=== PATIENT | female | born 1960 | race Caucasian/White ===

== ENCOUNTER → 2016-10-08 | Outpatient (CLI) | payer OTHER | LOC: LAB 07:56 | DX: I10 Essential (primary) hypertension (principal); E13.9 Other specified diabetes mellitus without complications; E03.8 Other specified hypothyroidism ==

== ENCOUNTER → 2017-02-25 | Outpatient (CLI) | payer OTHER | LOC: LAB 07:38 | DX: E03.8 Other specified hypothyroidism (principal); I10 Essential (primary) hypertension; R73.09 Other abnormal glucose ==

== ENCOUNTER → 2017-06-12 | Outpatient (CLI) | payer OTHER ==
[2017-06-12 09:14] LABS: HEMATOCRIT 44.4 % (37.0-47.0); HEMOGLOBIN 14.7 g/dL (12.5-16.0); MEAN PLATELET VOLUME 9.1 fl (7.4-10.4); RED BLOOD COUNT 5.04 M/mm3 (4.10-5.30); RED CELL DISTRIBUTION WIDTH 12.8 % (11.5-14.5); WHITE BLOOD COUNT 12.6 K/mm3 (4.8-10.8)
[2017-06-12 09:40] LABS: ALBUMIN 4.2 g/dL (3.5-5.0); BUN/CREATININE RATIO 33.3 (6.0-26.0); TOTAL BILIRUBIN 0.7 mg/dL (0.2-1.3); TOTAL PROTEIN 7.7 g/dL (6.3-8.2)
== END ==
LOC: LAB 09:00
PROVIDERS: Family Medicine
DX: E03.9 Hypothyroidism, unspecified (principal); E11.9 Type 2 diabetes mellitus without complications; R55 Syncope and collapse

== ENCOUNTER → 2017-06-12 | Outpatient (CLI) | payer OTHER | LOC: RAD 13:00 | DX: G93.9 Disorder of brain, unspecified (principal); R55 Syncope and collapse ==

== ENCOUNTER → 2017-09-09 | Outpatient (CLI) | payer OTHER | LOC: LAB 08:46 | PROVIDERS: Family Medicine | DX: E13.9 Other specified diabetes mellitus without complications (principal); E03.8 Other specified hypothyroidism ==

== ENCOUNTER → 2017-10-04 | Outpatient (CLI) | payer OTHER ==
[2017-10-04 07:29] LABS: PH-URINE 5.5 (5.0 - 8.0); URINE APPEARANCE HAZY; URINE COLOR YELLOW
[2017-10-04 07:30] LABS: URINE BILIRUBIN NEGATIVE (NEGATIVE); URINE BLOOD 250 ery/uL (NEGATIVE); URINE GLUCOSE NEGATIVE (NEGATIVE); URINE KETONE NEGATIVE (NEGATIVE); URINE LEUKOCYTE ESTERASE 2+ (NEGATIVE); URINE NITRATE NEGATIVE (NEGATIVE); URINE PROTEIN(semi-quant) 1+ mg/dL (NEGATIVE); URINE UROBILINOGEN NORMAL (NORMAL); URINE WBC 31-50 /hpf (0-3)
== END ==
LOC: LAB 07:24
PROVIDERS: Family Medicine
DX: R30.9 Painful micturition, unspecified (principal); Z88.5 Allergy status to narcotic agent

== ENCOUNTER → 2017-10-16 | Outpatient (CLI) | payer OTHER ==
[2017-10-16 11:38] LABS: PH-URINE 6.5 (5.0 - 8.0); URINE APPEARANCE CLEAR; URINE BILIRUBIN NEGATIVE (NEGATIVE); URINE BLOOD NEGATIVE (NEGATIVE); URINE COLOR YELLOW; URINE GLUCOSE NEGATIVE (NEGATIVE); URINE KETONE NEGATIVE (NEGATIVE); URINE LEUKOCYTE ESTERASE NEGATIVE (NEGATIVE); URINE NITRATE NEGATIVE (NEGATIVE); URINE PROTEIN(semi-quant) TRACE mg/dL (NEGATIVE); URINE UROBILINOGEN NORMAL (NORMAL)
== END ==
LOC: LAB 10:04
PROVIDERS: Family Medicine
DX: R30.9 Painful micturition, unspecified (principal)

== ENCOUNTER → 2017-11-09 | Outpatient (CLI) | payer OTHER | LOC: LAB 16:42 | PROVIDERS: Family Medicine | DX: E13.9 Other specified diabetes mellitus without complications (principal); E03.8 Other specified hypothyroidism ==

== ENCOUNTER → 2018-03-07 | Outpatient (CLI) | payer OTHER ==
[2018-03-08 13:38] LABS: BUN/CREATININE RATIO 27.8 (6.0-26.0); CALCIUM 9.8 mg/dL (8.4-10.2); POTASSIUM 4.7 mmol/L (3.6-5.0)
== END ==
LOC: LAB 07:11
PROVIDERS: Family Medicine
DX: E11.9 Type 2 diabetes mellitus without complications (principal); E03.9 Hypothyroidism, unspecified

== ENCOUNTER → 2018-03-19 | Outpatient (CLI) | payer OTHER | LOC: RAD 13:00 | DX: E04.1 Nontoxic single thyroid nodule (principal); E03.9 Hypothyroidism, unspecified; I10 Essential (primary) hypertension; D32.9 Benign neoplasm of meninges, unspecified ==

== ENCOUNTER → 2018-08-31 | Outpatient (CLI) | payer OTHER ==
[2018-08-31 09:02] LABS: ALBUMIN 4.2 g/dL (3.5-5.0); CALCIUM 9.1 mg/dL (8.4-10.2); POTASSIUM 4.1 mmol/L (3.6-5.0); TOTAL BILIRUBIN 0.4 mg/dL (0.2-1.3); TOTAL PROTEIN 6.8 g/dL (6.3-8.2)
== END ==
LOC: LAB 08:27
PROVIDERS: Family Medicine
DX: I10 Essential (primary) hypertension (principal); E11.9 Type 2 diabetes mellitus without complications

== ENCOUNTER → 2018-09-14 | Outpatient (CLI) | payer OTHER ==
[~2018-09-14] VITALS: Ht 198.1 cm; Wt 81.8 kg
[~2018-09-14] MED LIST: CHILDREN'S ASPI81 M1 PO; HYDROCHLOROTHIA1 T15 PO; LEVOTHYROXINE125 MCG PO
[2018-09-14 16:00] VITALS: BP 144/82
[2018-09-14 23:52] LABS: ESTRADIOL 29 pg/mL (()); FOLLICLE STIMULATING HORMONE 52.5 mIU/mL (())
== END ==
LOC: AMSURD 15:25
PROVIDERS: Family Medicine
DX: Z00.00 Encounter for general adult medical examination without abnormal findings (principal); R53.1 Weakness; E03.9 Hypothyroidism, unspecified; I10 Essential (primary) hypertension; G00-G99 Diseases of the nervous system; Z79.899 Other long term (current) drug therapy

== ENCOUNTER → 2018-10-11 | Outpatient (CLI) | payer OTHER ==
[2018-09-14 16:00] VITALS: BP 144/82
[2018-10-11 07:39] LABS: EOS # 0.1 (0.04-0.40); EOS % 1.9 % (1.0-5.0); HEMATOCRIT 44.3 % (37.0-47.0); HEMOGLOBIN 14.1 g/dL (12.5-16.0); LYMPH# 1.4 (1.50-4.00); MEAN CELL VOLUME 94 fl (78-100); MEAN CORPUSCULAR HEMOGLOBIN 30 pg (27-31); MEAN CORPUSCULAR HGB CONC 32 g/dL (33-37); MONO # 0.7 (0.20-0.80); NEU # 4.5 (1.40-6.50); PLATELET COUNT 288 K/mm3 (130-400); RED BLOOD COUNT 4.73 M/mm3 (4.10-5.30); RED CELL DISTRIBUTION WIDTH 12.8 % (11.5-14.5); WHITE BLOOD COUNT 6.7 K/mm3 (4.8-10.8)
[2018-10-11 08:05] LABS: ALBUMIN 4.4 g/dL (3.5-5.0); CALCIUM 9.2 mg/dL (8.4-10.2); POTASSIUM 4.3 mmol/L (3.6-5.0); TOTAL BILIRUBIN 0.5 mg/dL (0.2-1.3)
== END ==
LOC: LAB 07:05
DX: Z51.81 Encounter for therapeutic drug level monitoring (principal)

== ENCOUNTER → 2019-01-14 | Outpatient (CLI) | payer OTHER ==
[2018-09-14 16:00] VITALS: BP 144/82
[2019-01-14 08:14] LABS: EOS # 0.1 (0.04-0.40); EOS % 2.7 % (1.0-5.0); HEMOGLOBIN 13.7 g/dL (12.5-16.0); LYMPH# 1.4 (1.50-4.00); MEAN CELL VOLUME 93 fl (78-100); MEAN CORPUSCULAR HEMOGLOBIN 30 pg (27-31); MEAN CORPUSCULAR HGB CONC 32 g/dL (33-37); MEAN PLATELET VOLUME 9.4 fl (7.4-10.4); MONO # 0.4 (0.20-0.80); NEU # 2.6 (1.40-6.50); PLATELET COUNT 255 K/mm3 (130-400); RED BLOOD COUNT 4.64 M/mm3 (4.10-5.30); RED CELL DISTRIBUTION WIDTH 13.2 % (11.5-14.5); WHITE BLOOD COUNT 4.5 K/mm3 (4.8-10.8)
[2019-01-14 08:56] LABS: ALBUMIN 3.9 g/dL (3.5-5.0); CALCIUM 9.4 mg/dL (8.3-10.5); POTASSIUM 3.9 mmol/L (3.5-5.1); TOTAL BILIRUBIN 0.3 mg/dL (0.2-1.2); TOTAL PROTEIN 6.2 g/dL (6.4-8.3)
== END ==
LOC: LAB 07:11
DX: Z51.81 Encounter for therapeutic drug level monitoring (principal)

== ENCOUNTER → 2019-09-09 | Outpatient (CLI) | payer OTHER ==
[2018-09-14 16:00] VITALS: BP 144/82
[2019-09-09 10:15] LABS: ALBUMIN 4.7 g/dL (3.5-5.0); POTASSIUM 4.3 mmol/L (3.5-5.1)
[2019-09-09 10:16] LABS: CALCIUM 9.5 mg/dL (8.3-10.5)
[2019-09-09 10:19] LABS: TOTAL BILIRUBIN 0.3 mg/dL (0.2-1.2)
== END ==
LOC: LAB 06:35
PROVIDERS: Family Medicine
DX: Z13.6 Encounter for screening for cardiovascular disorders (principal); E03.9 Hypothyroidism, unspecified; I10 Essential (primary) hypertension; E11.9 Type 2 diabetes mellitus without complications

== ENCOUNTER → 2019-10-04 | Outpatient (CLI) | payer OTHER ==
[2018-09-14 16:00] VITALS: BP 144/82
== END ==
LOC: RAD 11:25
DX: R06.02 Shortness of breath (principal)

== ENCOUNTER → 2019-11-16 | Outpatient (CLI) | payer OTHER ==
[2018-09-14 16:00] VITALS: BP 144/82
[2019-11-16 08:23] LABS: EOS # 0.1 (0.04-0.40); EOS % 1.9 % (1.0-5.0); HEMATOCRIT 46.3 % (37.0-47.0); HEMOGLOBIN 14.7 g/dL (12.5-16.0); LYMPH# 1.2 (1.50-4.00); MEAN CELL VOLUME 95 fl (78-100); MEAN CORPUSCULAR HEMOGLOBIN 30 pg (27-31); MEAN CORPUSCULAR HGB CONC 32 g/dL (33-37); MEAN PLATELET VOLUME 8.7 fl (7.4-10.4); MONO # 0.6 (0.20-0.80); PLATELET COUNT 264 K/mm3 (130-400); RED BLOOD COUNT 4.89 M/mm3 (4.10-5.30); WHITE BLOOD COUNT 5.9 K/mm3 (4.8-10.8)
[2019-11-16 08:46] LABS: CALCIUM 9.2 mg/dL (8.3-10.5); POTASSIUM 4.1 mmol/L (3.5-5.1); TOTAL PROTEIN 6.9 g/dL (6.4-8.3)
[2019-11-16 08:47] LABS: ALBUMIN 4.4 g/dL (3.5-5.0); TOTAL BILIRUBIN 0.4 mg/dL (0.2-1.2)
== END ==
LOC: LAB 08:09
DX: Z01.89 Encounter for other specified special examinations (principal)

== ENCOUNTER → 2020-02-11 | Outpatient (CLI) | payer OTHER ==
[2018-09-14 16:00] VITALS: BP 144/82
== END ==
LOC: LAB 06:58
DX: Z00.00 Encounter for general adult medical examination without abnormal findings (principal); E03.9 Hypothyroidism, unspecified; I10 Essential (primary) hypertension; G00-G99 Diseases of the nervous system

== ENCOUNTER → 2020-06-01 | Outpatient (CLI) | payer OTHER ==
[2018-09-14 16:00] VITALS: BP 144/82
[2020-06-01 09:21] LABS: EOS # 0.1 (0.04-0.40); EOS % 2.3 % (1.0-5.0); HEMATOCRIT 46.1 % (37.0-47.0); HEMOGLOBIN 14.8 g/dL (12.5-16.0); LYMPH# 1.1 (1.50-4.00); MEAN CELL VOLUME 92 fl (78-100); MEAN CORPUSCULAR HEMOGLOBIN 30 pg (27-31); MEAN CORPUSCULAR HGB CONC 32 g/dL (33-37); MEAN PLATELET VOLUME 8.7 fl (7.4-10.4); MONO # 0.5 (0.20-0.80); NEU # 3.4 (1.40-6.50); PLATELET COUNT 281 K/mm3 (130-400); RED BLOOD COUNT 5.01 M/mm3 (4.10-5.30); RED CELL DISTRIBUTION WIDTH 12.6 % (11.5-14.5); WHITE BLOOD COUNT 5.1 K/mm3 (4.8-10.8)
[2020-06-01 09:26] LABS: ALBUMIN 4.7 g/dL (3.5-5.0); POTASSIUM 4.1 mmol/L (3.5-5.1)
[2020-06-01 09:28] LABS: CALCIUM 9.7 mg/dL (8.3-10.5)
[2020-06-01 09:29] LABS: TOTAL PROTEIN 7.8 g/dL (6.4-8.3)
[2020-06-01 09:31] LABS: TOTAL BILIRUBIN 0.6 mg/dL (0.2-1.2)
== END ==
LOC: LAB 09:07
PROVIDERS: Family Medicine
DX: Z51.81 Encounter for therapeutic drug level monitoring (principal)

== ENCOUNTER → 2020-08-08 | Outpatient (CLI) | payer OTHER ==
[2018-09-14 16:00] VITALS: BP 144/82
== END ==
LOC: LAB 10:46
DX: T14.8XXA Other injury of unspecified body region, initial encounter (principal)

== ENCOUNTER → 2020-08-18 | Outpatient (CLI) | payer OTHER ==
[2018-09-14 16:00] VITALS: BP 144/82
== END ==
LOC: LAB 15:29
DX: Z01.812 Encounter for preprocedural laboratory examination (principal); E78.00 Pure hypercholesterolemia, unspecified

== ENCOUNTER → 2021-01-08 | Outpatient (CLI) | payer OTHER ==
[2018-09-14 16:00] VITALS: BP 144/82
[2021-01-08 14:31] LABS: BASO # 0.02 (0.02-0.10); EOS # 0.11 (0.04-0.40); EOS % 1.4 % (1.0-5.0); HEMATOCRIT 44.4 % (37.0-47.0); HEMOGLOBIN 14.6 g/dL (12.5-16.0); LYMPH# 1.65 (1.50-4.00); MEAN CELL VOLUME 91 fl (78-100); MEAN CORPUSCULAR HEMOGLOBIN 30 pg (27-31); MEAN CORPUSCULAR HGB CONC 33 g/dL (33-37); MEAN PLATELET VOLUME 8.5 fl (7.4-10.4); MONO # 0.62 (0.20-0.80); NEU # 5.54 (1.40-6.50); PLATELET COUNT 271 K/mm3 (130-400); RED BLOOD COUNT 4.88 M/mm3 (4.10-5.30); RED CELL DISTRIBUTION WIDTH 12.2 % (11.5-14.5)
[2021-01-08 14:44] LABS: ALBUMIN 4.4 g/dL (3.5-5.0); POTASSIUM 3.7 mmol/L (3.5-5.1)
[2021-01-08 14:48] LABS: TOTAL BILIRUBIN 0.4 mg/dL (0.2-1.2)
== END ==
LOC: LAB 14:13
DX: Z51.81 Encounter for therapeutic drug level monitoring (principal)

== ENCOUNTER → 2021-03-09 | Outpatient (CLI) | payer OTHER ==
[2021-03-09 09:17] LABS: BASO # 0.02 (0.02-0.10); EOS # 0.17 (0.04-0.40); EOS % 2.7 % (1.0-5.0); HEMATOCRIT 43.5 % (37.0-47.0); HEMOGLOBIN 14.1 g/dL (12.5-16.0); LYMPH# 1.55 (1.50-4.00); MEAN CELL VOLUME 93 fl (78-100); MEAN CORPUSCULAR HEMOGLOBIN 30 pg (27-31); MEAN CORPUSCULAR HGB CONC 32 g/dL (33-37); MEAN PLATELET VOLUME 8.2 fl (7.4-10.4); NEU # 3.88 (1.40-6.50); PLATELET COUNT 236 K/mm3 (130-400); RED BLOOD COUNT 4.68 M/mm3 (4.10-5.30); RED CELL DISTRIBUTION WIDTH 12.1 % (11.5-14.5); WHITE BLOOD COUNT 6.2 K/mm3 (4.8-10.8)
[2021-03-09 09:27] LABS: ALBUMIN 4.5 g/dL (3.5-5.0)
[2021-03-09 09:28] LABS: CALCIUM 9.7 mg/dL (8.3-10.5)
[2021-03-09 09:30] LABS: TOTAL PROTEIN 7.3 g/dL (6.4-8.3)
[2021-03-09 09:31] LABS: TOTAL BILIRUBIN 0.5 mg/dL (0.2-1.2)
== END ==
LOC: LAB 09:01
DX: Z51.81 Encounter for therapeutic drug level monitoring (principal)

== ENCOUNTER → 2021-04-06 | Outpatient (CLI) | payer OTHER | LOC: LAB 13:26 | DX: N30.01 Acute cystitis with hematuria (principal) ==

== ENCOUNTER → 2021-04-14 | Outpatient (CLI) | payer OTHER ==
[2021-04-14 13:09] LABS: URINE APPEARANCE CLEAR; URINE BILIRUBIN NEGATIVE (NEGATIVE); URINE BLOOD NEGATIVE (NEGATIVE); URINE COLOR YELLOW; URINE GLUCOSE NEGATIVE (NEGATIVE); URINE KETONE NEGATIVE (NEGATIVE); URINE LEUKOCYTE ESTERASE NEGATIVE (NEGATIVE); URINE NITRATE NEGATIVE (NEGATIVE); URINE PROTEIN(semi-quant) NEGATIVE (NEGATIVE); URINE UROBILINOGEN NORMAL (NORMAL)
== END ==
LOC: LAB 12:37
PROVIDERS: Family Medicine
DX: N39.0 Urinary tract infection, site not specified (principal)

== ENCOUNTER → 2021-05-14 | Outpatient (CLI) | payer OTHER ==
[2021-05-14 09:58] LABS: ALBUMIN 3.9 g/dL (3.5-5.0); POTASSIUM 4.4 mmol/L (3.5-5.1)
[2021-05-14 09:59] LABS: CALCIUM 9.4 mg/dL (8.3-10.5)
[2021-05-14 10:01] LABS: TOTAL PROTEIN 6.4 g/dL (6.4-8.3)
[2021-05-14 10:02] LABS: TOTAL BILIRUBIN 0.4 mg/dL (0.2-1.2)
== END ==
LOC: LAB 09:18
PROVIDERS: Family Medicine
DX: N39.0 Urinary tract infection, site not specified (principal)

== ENCOUNTER → 2021-05-27 | Outpatient (CLI) | payer OTHER ==
[2021-05-27 10:11] LABS: HEMATOCRIT 40.7 % (37.0-47.0); HEMOGLOBIN 13.1 g/dL (12.5-16.0); MEAN PLATELET VOLUME 8.4 fl (7.4-10.4); RED BLOOD COUNT 4.34 M/mm3 (4.10-5.30); RED CELL DISTRIBUTION WIDTH 12.6 % (11.5-14.5); WHITE BLOOD COUNT 3.5 K/mm3 (4.8-10.8)
== END ==
LOC: LAB 09:04
PROVIDERS: Family Medicine
DX: Z00.00 Encounter for general adult medical examination without abnormal findings (principal)

== ENCOUNTER → 2021-11-05 | Outpatient (CLI) | payer OTHER | LOC: LAB 12:25 | DX: Z01.812 Encounter for preprocedural laboratory examination (principal) ==

== ENCOUNTER → 2022-06-13 | Outpatient (CLI) | payer OTHER | LOC: RAD 12:35 → MAMMO 13:30 | DX: Z13.820 Encounter for screening for osteoporosis (principal); M85.88 Other specified disorders of bone density and structure, other site ==

== ENCOUNTER 2022-08-23 23:03 | Emergency (ER) | payer OTHER ==
[~2022-08-23] VITALS: Ht 154.9 cm; Wt 85.5 kg
[2022-08-23] MEDS ORDERED: LISINOPRIL20 MG PO (23:37)
[2022-08-23] MEDS ORDERED: LEVOTHYROXIN0.137 MG PO (23:38)
[2022-08-23] MEDS ORDERED: LAMOTRIGINE200 MG PO (23:38)
[2022-08-23] MEDS ORDERED: OMEGA 3 1,0001 EACH PO (23:40)
[2022-08-23] MEDS ORDERED: CALCIUM 600 MG1 EAC4 PO (23:41)
[2022-08-23] MEDS ORDERED: ASPIRIN E.C. 8181 MG (23:41)
[2022-08-24] LABS: BASO # 0.01 K/mm3 (0.02-0.10); EOS # 0.15 K/mm3 (0.04-0.40); EOS % 2.4 % (1.0-5.0); HEMOGLOBIN 13.8 g/dL (12.5-16.0); LYMPH# 2.22 K/mm3 (1.50-4.00); MEAN CELL VOLUME 92 fl (78-100); MEAN CORPUSCULAR HEMOGLOBIN 31 pg (27-31); MEAN CORPUSCULAR HGB CONC 34 g/dL (33-37); MEAN PLATELET VOLUME 8.7 fl (7.4-10.4); MONO # 0.58 K/mm3 (0.20-0.80); NEU # 3.18 K/mm3 (1.40-6.50); PLATELET COUNT 245 K/mm3 (130-400); RED BLOOD COUNT 4.48 M/mm3 (4.10-5.30); RED CELL DISTRIBUTION WIDTH 12.3 % (11.5-14.5); WHITE BLOOD COUNT 6.2 K/mm3 (4.8-10.8)
[2022-08-24 00:07] LABS: ALBUMIN 4.2 g/dL (3.4-4.8); POTASSIUM 3.9 mmol/L (3.5-5.1)
[2022-08-24 00:08] LABS: CALCIUM 9.8 mg/dL (8.3-10.5)
[2022-08-24 00:10] LABS: TOTAL PROTEIN 6.6 g/dL (6.2-8.1)
[2022-08-24 00:11] LABS: TOTAL BILIRUBIN 0.3 mg/dL (0.2-1.2)
[2022-08-24 05:56] VITALS: BP 123/80
[2022-08-24] MEDS ORDERED: EPIPEN 2-PAK1 MG/ML IM (06:03)
[2022-08-24] MEDS ORDERED: PREDNISONE20 M1 PO (06:03)
== END 2022-08-24 06:15 | disposition home or self-care (01) ==
LOC: ED 23:03
PROVIDERS: Nurse Practitioner
DX: T78.3XXA Angioneurotic edema, initial encounter (principal); E66.9 Obesity, unspecified
CPT/HCPCS: J0171; J2930; J3490

== ENCOUNTER → 2023-05-20 | Outpatient (CLI) | payer OTHER ==
[~2023-05-20] MED LIST changes: +ASPIRIN E.C. 8181 MG; +CALCIUM 600 MG1 EAC4 PO; +EPIPEN 2-PAK1 MG/ML IM; +LAMOTRIGINE200 MG PO; +LEVOTHYROXIN0.137 MG PO; +LISINOPRIL20 MG PO; +OMEGA 3 1,0001 EACH PO; +PREDNISONE20 M1 PO
[2023-05-20 09:14] LABS: BASO # 0.01 K/mm3 (0.02-0.10); EOS # 0.19 K/mm3 (0.04-0.40); EOS % 3.4 % (1.0-5.0); HEMATOCRIT 45.5 % (37.0-47.0); HEMOGLOBIN 14.9 g/dL (12.5-16.0); LYMPH# 1.53 K/mm3 (1.50-4.00); MEAN CELL VOLUME 92 fl (78-100); MEAN CORPUSCULAR HEMOGLOBIN 30 pg (27-31); MEAN CORPUSCULAR HGB CONC 33 g/dL (33-37); MEAN PLATELET VOLUME 8.5 fl (7.4-10.4); MONO # 0.45 K/mm3 (0.20-0.80); NEU # 3.37 K/mm3 (1.40-6.50); PLATELET COUNT 242 K/mm3 (130-400); RED BLOOD COUNT 4.96 M/mm3 (4.10-5.30); RED CELL DISTRIBUTION WIDTH 12.4 % (11.5-14.5); WHITE BLOOD COUNT 5.6 K/mm3 (4.8-10.8)
[2023-05-20 09:38] LABS: ALBUMIN 4.5 g/dL (3.4-4.8); POTASSIUM 4.2 mmol/L (3.5-5.1)
[2023-05-20 09:39] LABS: CALCIUM 9.6 mg/dL (8.3-10.5)
[2023-05-20 09:40] LABS: TOTAL PROTEIN 6.8 g/dL (6.2-8.1)
[2023-05-20 09:42] LABS: TOTAL BILIRUBIN 0.5 mg/dL (0.2-1.2)
== END ==
LOC: LAB 08:51
PROVIDERS: Family Medicine
DX: Z00.00 Encounter for general adult medical examination without abnormal findings (principal); I10 Essential (primary) hypertension; D32.9 Benign neoplasm of meninges, unspecified; E03.9 Hypothyroidism, unspecified; Z86.39 Personal history of other endocrine, nutritional and metabolic disease

== ENCOUNTER → 2023-05-31 | Outpatient (CLI) | payer OTHER ==
[2023-06-01 17:03] LABS: HEPATITIS C VIRUS ANTIBODY Negative (Negative)
== END ==
LOC: LAB 16:18
PROVIDERS: Family Medicine
DX: Z00.00 Encounter for general adult medical examination without abnormal findings (principal); Z12.11 Encounter for screening for malignant neoplasm of colon; Z12.39 Encounter for other screening for malignant neoplasm of breast; Z11.4 Encounter for screening for human immunodeficiency virus [HIV]; Z11.59 Encounter for screening for other viral diseases; I10 Essential (primary) hypertension; E03.9 Hypothyroidism, unspecified; E11.9 Type 2 diabetes mellitus without complications; M85.851 Other specified disorders of bone density and structure, right thigh

== ENCOUNTER → 2023-08-26 | Outpatient (CLI) | payer OTHER ==
[2023-08-26 09:30] LABS: CALCIUM 9.4 mg/dL (8.3-10.5)
== END ==
LOC: LAB 08:55
PROVIDERS: Family Medicine
DX: I10 Essential (primary) hypertension (principal); E03.9 Hypothyroidism, unspecified

== ENCOUNTER → 2023-10-26 | Outpatient (CLI) | payer OTHER | LOC: RAD 18:43 | DX: M79.89 Other specified soft tissue disorders (principal) ==

== ENCOUNTER → 2024-06-03 | Outpatient (CLI) | payer OTHER | LOC: LAB 16:10 | DX: E11.9 Type 2 diabetes mellitus without complications (principal) ==

== ENCOUNTER → 2024-08-15 | Outpatient (CLI) | payer OTHER ==
[2024-08-15 10:02] LABS: CALCIUM 9.9 mg/dL (8.3-10.5)
[2024-08-16 00:15] LABS: CREATININE OTHER SOURCE 28 mg/dL (63-166)
== END ==
LOC: LAB 09:35
PROVIDERS: Family Medicine
DX: Z13.220 Encounter for screening for lipoid disorders (principal); I10 Essential (primary) hypertension; E03.8 Other specified hypothyroidism